=== PATIENT | female | born 1975 | race Caucasian/White ===

== ENCOUNTER 2020-04-28 14:15 | Emergency (ER) | payer OTHER, SELFPAY ==
[2020-04-28 14:35] VITALS: BP 125/87; PULSE 81; RESP 18; TEMP 36.4; O2SAT 99
--- NOTE | 2020-04-28 14:55 | ED.EAR ---
HPI - Ear Problem General Chief complaint: Ear Stated complaint: left ear problems Time Seen by Provider: 04/28/20 14:55 Source: patient Mode of arrival: ambulatory Limitations: no limitations History of Present Illness HPI Narrative: Sonya Morgan is a 44 yo famle with a PMH of cleft palate and seasonal allergies, comes to express care with left-sided decreased hearing. She has had problems with chronic ENT problems due to her cleft palate and cleft palate repair. States muffled hearing started 2 days ago Related Data Allergies Allergy/AdvReac Type Severity Reaction Status Date / Time No Known Allergies Allergy Verified 03/16/20 09:18 Review of Systems Review of Systems: Narrative: CONSTITUTIONAL: Denies fever, chills, sweats. EYES: Denies visual changes, redness, discharge. ENT: Denies rhinorrhea, congestion, sore throat, left muffled hearing CARDIOVASCULAR: Denies chest pain, palpitations, edema. RESPIRATORY: Denies dyspnea, wheezing, cough GASTROINTESTINAL: Denies abdominal pain, nausea, vomiting, diarrhea. GENITOURINARY: Denies dysuria, hematuria, abnormal discharge SKIN: Denies rash or itching. NEUROLOGIC: Denies numbness, or focal weakness. PSYCHIATRIC: Denies anxiety or depression. PMFSH Past Medical History Medical History Bilateral hearing loss Cleft palate and cleft lip Family History Family History Father Depression Heart disease Hypertension High cholesterol Mother , 37 suicide Suicide Sibling Hypertension Depression Social History Social History Smoking status: Never smoker Alcohol intake: never Substance use: never Gender identity (if verbalized by the patient): Female Comments At time of signature, I agree with nursing past medical, surgical, social and family history. There is no relevant family history pertinent to the presenting complaint. Exam Narrative: Exam Narrative: GENERAL: This is a well-nourished, well-developed patient, in no distress. HEAD: normocephalic, atraumatic. EYES: Sclera clear/white. Vision is grossly intact. EARS: External ears normal, auditory canals clear on R and erythema on L TMs normal without perforation. Hearing grossly intact. Wears hearing aid on right NOSE: External nose normal without nasal discharge, nares without redness, no rhinorrhea. THROAT: Mucous membranes moist, NECK: Neck supple, non-tender CARDIOVASCULAR: Regular rate and rhythm without murmurs, gallops, or rubs. RESPIRATORY: Clear to auscultation. Breath sounds equal bilaterally. No wheezes, rales, or rhonchi. GASTROINTESTINAL: Abdomen soft, non-tender, SKIN: warm, intact with no suspicious lesions or rash, good texture and turgor. NEURO: awake, alert, and oriented to person, place and time. There were no obvious focal neurologic abnormalities. Steady gait EXTREMITIES: Normal range of motion. BACK: Nontender without deformity Course Course Emergency Course: Started on Ciprodex and amoxicillin p.o.-patient has been taking Ciprodex x2 days with no improvement. Patient is also to start on Mary-she is to use this over Claritin because of her concern for drowsiness Vital Signs Vital signs: Vital Signs Temperature 97.6 F 04/28/20 14:35 Pulse Rate 81 04/28/20 14:35 Respiratory Rate 18 04/28/20 14:35 Blood Pressure 125/87 04/28/20 14:35 Pulse Oximetry 99 04/28/20 14:35 Temperature 97.6 F 04/28/20 14:35 Pulse Rate 81 04/28/20 14:35 Respiratory Rate 18 04/28/20 14:35 Blood Pressure 125/87 04/28/20 14:35 Pulse Oximetry 99 04/28/20 14:35 Medical Decision Making Differential Diagnosis Differential Diagnosis: Otitis media versus otitis externa versus bacterial infection versus URI Vital Signs Vital Signs: Vital Signs Temperature 97.6 F 04/28/20 14:35 Pu
== END 2020-04-28 15:27 | disposition home or self-care (01) ==
PROVIDERS: Emergency Provider Nurse Practitioner; PCP Family Medicine
DX: H66.005 Acute suppurative otitis media without spontaneous rupture of ear drum, recurrent, left ear (principal); Q37.9 Unspecified cleft palate with unilateral cleft lip
CPT/HCPCS: 99213; G0463

== ENCOUNTER 2022-02-23 07:54 | Outpatient (CLI) | payer OTHER, SELFPAY | END 2022-02-23 07:55 | disposition home or self-care (01) | LOC: ANHAUDIO 07:56 | PROVIDERS: PCP Family Medicine Sports Medicine; Visit Provider Otolaryngology | DX: H90.6 Mixed conductive and sensorineural hearing loss, bilateral (principal) | CPT/HCPCS: 92557; 92567 ==